=== PATIENT | male | born 1975 | race Caucasian/White ===

== ENCOUNTER 2023-06-09 21:54 | Observation (INO) | payer OTHER, SELFPAY ==
--- NOTE | 2023-06-09 | ECG_ITS ---
Test Reason : HYPERTANTION Blood Pressure : / mmHG Vent. Rate : 118 BPM Atrial Rate : 118 BPM P-R Int : 164 ms QRS Dur : 090 ms QT Int : 328 ms P-R-T Axes : 060 -42 010 degrees QTc Int : 459 ms Sinus tachycardia Left axis deviation Pulmonary disease pattern Minimal voltage criteria for LVH, may be normal variant ( Trey product ) Septal infarct , age undetermined Abnormal ECG No previous ECGs available Referred By: Generic ED Physician Electronically Signed By:ELIDIA WOLFF
--- NOTE | ~2023-06-09 | CT_ITS ---
EXAMINATION: CT HEAD WITHOUT CONTRAST CLINICAL INFORMATION: Confusion, hypertension urgency. COMPARISON: CT of the head done on 06/09/2023. TECHNIQUE: Contiguous axial imaging was performed from the skull base to vertex without intravenous administration of contrast. This CT examination was performed using dose optimization techniques as appropriate, variously including the following: *Automated exposure control *Adjustment of mA and/or kV according to patient size (this includes techniques or standardized protocols for targeted exams where dose is matched to indication/reason for exam; i.e. extremities or head) *Use of iterative reconstruction technique DLP: 700 mGy-cm FINDINGS: There is no evidence of acute intracranial hemorrhage or territorial infarction. No abnormal mass effect or midline shift is seen. Ojeda to white matter differentiation is well preserved. No extra-axial fluid collections are identified. No significant volume loss. No hydrocephalus. There is no abnormal attenuation within the brain parenchyma. The osseous structures and soft tissues are normal. The mastoid air cells and visualized portions of the paranasal sinuses are well aerated. CT/CT head/brain wo IV con IMPRESSION: No acute intracranial pathology. No significant change since 06/09/2023.
--- NOTE | ~2023-06-09 | CT_ITS ---
EXAMINATION: CT HEAD WITHOUT CONTRAST CLINICAL INFORMATION: Altered mental status hypertension COMPARISON: None available. TECHNIQUE: Contiguous axial imaging was performed from the skull base to vertex without intravenous administration of contrast. This CT examination was performed using dose optimization techniques as appropriate, variously including the following: *Automated exposure control *Adjustment of mA and/or kV according to patient size (this includes techniques or standardized protocols for targeted exams where dose is matched to indication/reason for exam; i.e. extremities or head) *Use of iterative reconstruction technique DLP: 684 mGy-cm FINDINGS: There is no evidence of acute intracranial hemorrhage or territorial infarction. No abnormal mass effect or midline shift is seen. Ojeda to white matter differentiation is well preserved. No extra-axial fluid collections are identified. The ventricles are normal in size. There is no abnormal attenuation within the brain parenchyma. The osseous structures and soft tissues are normal. The mastoid air cells and visualized portions of the paranasal sinuses are well aerated. CT/CT head/brain wo IV con IMPRESSION: No acute intracranial pathology.
[2023-06-09 22:02] VITALS: BP 243/151; PULSE 120; RESP 24; TEMP 38.1; O2SAT 94; BMI 29.9
[2023-06-09 22:12] VITALS: BP 243/165
[2023-06-09 22:20] VITALS: BP 250/151; PULSE 108; RESP 16; O2SAT 96
[2023-06-09 22:30] LABS: MANUAL DIFF FLAG NO
[2023-06-09 22:31] LABS: Basophils Absolute Auto 0.1 X10*3/uL (0.0-0.2); Basophils Percent Auto 0.7 % (0-2); Eosinophils Absolute Auto 0.1 X10*3/uL (0.0-0.4); Eosinophils Percent Auto 1.2 % (0-4); Hemoglobin 19.5 g/dl (14.0-18.0); Imm Gran Abs Auto 0.04 X10*3/uL (0.00-0.03); Imm Gran Pct Auto 0.4 % (0.0-0.4); Lymphocytes Absolute Auto 1.3 X10*3/uL (1.2-4.9); Lymphocytes Percent Auto 12.3 % (20-40); Mean Corpuscular Hemoglobin 30.7 pg (27.0-33.0); Mean Corpuscular Volume 87.7 fL (80.0-98.0); Mean Platelet Volume 10.1 fL (9.4-12.4); Monocytes Absolute Auto 0.5 X10*3/uL (0.1-1.2); Neutrophils Absolute Auto 8.2 x10*3/uL (2.0-8.3); Neutrophils Percent Auto 80.4 % (45-73); Platelet Count 254 X10*3/uL (160-400); Red Blood Count 6.35 X10*6/uL (4.60-5.80); Red Cell Distribution Width 12.8 % (11.0-16.0); White Blood Count 10.2 X10*3/uL (4.8-10.8)
--- NOTE | 2023-06-09 22:31 | ED_ITS ---
HPI - General Adult General Chief complaint: General Medical Stated complaint: Withdrawals Time Seen by Provider: 06/09/23 22:31 Source: patient Mode of arrival: ambulatory Limitations: no limitations History of Present Illness HPI narrative: Patient has history of anxiety using MDMA for a while off and on last time he took was 5 days ago took 2 bumps with other people more than usual also take anabolic steroids for last 4 years off and on last dose was 2 days ago been having manic episode with mind racing and psychosis feeling with better thoughts denying any SI/HI no headache patient does have history of hypertension takes hydrochlorothiazide with well-controlled blood pressure today he came because it was not feeling good feel jittery and anxious and mind racing. No prior history of diagnosis psychiatric illness. On arrival blood pressure was 243/151 with pulse rate of 120 temperature of 100.6 degrees Related Data Allergies Allergy/AdvReac Type Severity Reaction Status Date / Time No Known Allergies Allergy Verified 06/09/23 22:10 Review of Systems Review of Systems: Yes all other systems are reviewed and are negative [facility] Social History Social History Alcohol intake: current Alcohol intake frequency: a few times a month Use of substances other than those prescribed or required for medical reasons: Yes Substance Use Type: Hallucinogens and Other Substance Use Type Other:: steroids, testosterone Substance Use Frequency: Daily Substance Use Frequency Other:: mdma on tuesday, testosterone and steroids daily Last Used Substance: Days (ago) Advance Directives: No Advance Directives Information Provided: Yes Physical Exam ED Vital Signs: Vital Signs - 24 hr 06/09/23 22:02 06/09/23 22:12 06/09/23 22:20 Temperature 100.6 F H Pulse Rate 120 H 108 H Respiratory Rate 24 H 16 Blood Pressure 243/151 H 243/165 H 250/151 H Pulse Oximetry 94 96 Oxygen Delivery Method Room Air Room Air 06/09/23 22:53 06/10/23 00:24 06/10/23 00:33 Temperature 98.5 F Pulse Rate 94 88 97 Respiratory Rate 18 19 Blood Pressure 224/144 H 194/115 H 188/118 H Pulse Oximetry 96 94 Oxygen Delivery Method Room Air Room Air 06/10/23 02:00 Temperature Pulse Rate 83 Respiratory Rate 22 H Blood Pressure 157/86 H Pulse Oximetry 94 Oxygen Delivery Method Room Air BMI result Body Mass Index 29.9 Appearance: Alert. Oriented X3. No acute distress. Anxious Eyes: PERRLA, No Nystagmus ENT: Pharynx normal. Oral Mucosa moist Neck: Normal inspection. Neck supple. CVS: Tachycardiac regular tachycardia no murmur rub or gallop. Pulses normal. Respiratory: No respiratory distress. Equal air entry bilateral, no wheezing/rales/rhonchi Abdomen: Soft and nontender. Bowel sounds are present, no mass palpable, no CVA tenderness Skin: Skin warm and dry. Normal skin color. Normal skin turgor. Extremities: No lower extremity edema. No calf tenderness Neuro: Oriented X 3. No motor deficit. No sensory deficit.No cerebellar signs , cranial nerves II-XII intact Medications Administered Generic Name Dose Route Start Last Admin Trade Name Freq PRN Reason Stop Dose Admin Enoxaparin Sodium 40 mg 06/10/23 02:30 06/10/23 03:51 Enoxaparin Sodium 40 Mg/0.4 Ml Syringe SUBCUT 40 mg Q24H BRISEIDA Administration Discontinued Medications Generic Name Dose Route Start Last Admin Trade Name Freq PRN Reason Stop Dose Admin Sodium Chloride 1,000 mls @ 999 mls/hr 06/10/23 02:35 06/10/23 03:48 Ns IV 06/10/23 03:35 999 mls/hr .Q1H1M ONE Administration Labetalol HCl 20 mg 06/09/23 22:31 06/09/23 22:43 Labetalol Hcl 100 Mg/20 Ml Vial IVPUSH 06/09/23 22:32 20 mg ONCE ONE Administration Labetalol HCl 20 mg 06/10/23 00:08 06/10/23 01:57 Labetalol Hcl 100 Mg/20 Ml Vial IVPUSH 06/10/23 00:09 20 mg ONCE ONE Administration Lorazepam 2 mg 06/09/23 23:47 06/09/23 23:52 Lorazepam 2 Mg/Ml Vial IVPUSH 06/09/23 23:48 2 mg ONCE ONE Administration Medical Decision Making Medical Decision Making [facility] Narrative: Patient with History of hypertension with history of MDMA use and chronic anabolic steroid use came here with exited hypertension with increased anxiety and psychotic feeling possible secondary to chronic steroid use urine tox screen was negative, CT head was also negative patient required 2 doses of IV labetalol noted to have elevated creatinine to 1.78 with no history of renal disease will admit patient for further management blood pressure at time of admission was 143/84 Differential Diagnosis Differential Diagnoses: The differential diagnosis associated with the presentation includes Metabolic encephalopathy/psychosis/CVA/substance abuse Admission/Observation Consideration of admission/observation: Escalation of care including admission/observation considered Consult Healthcare Provider Management of the patient was discussed with: Hospitalist Lab Data MDM Lab Attestation statement: I reviewed the patient's lab results. 06/09/23 22:22 06/09/23 22:22 Labs: Lab Results 06/09/23 06/09/23 06/09/23 Range/Units 22:22 22:22 22:22 WBC 10.2 (4.8-10.8) X10*3/uL RBC 6.35 H (4.60-5.80) X10*6/uL Hgb 19.5 H (14.0-18.0) g/dl Hct 55.7 H (42.0-52.0) % MCV 87.7 (80.0-98.0) fL MCH 30.7 (27.0-33.0) pg MCHC 35.0 (31.0-36.0) g/dl RDW 12.8 (11.0-16.0) % Plt Count 254 (160-400) X10*3/uL MPV 10.1 (9.4-12.4) fL Immature Gran % (Auto) 0.4 (0.0-0.4) % Neut % (Auto) 80.4 H (45-73) % Lymph % (Auto) 12.3 L (20-40) % Perkins % (Auto) 5.0 (2-11) % Eos % (Auto) 1.2 (0-4) % Baso % (Auto) 0.7 (0-2) % Lymph # (Auto) 1.3 (1.2-4.9) X10*3/uL Perkins # (Auto) 0.5 (0.1-1.2) X10*3/uL Eos # (Auto) 0.1 (0.0-0.4) X10*3/uL Baso # (Auto) 0.1 (0.0-0.2) X10*3/uL Abs Immat Gran (auto) 0.04 H (0.00-0.03) X10*3/uL Absolute Neuts (auto) 8.2 (2.0-8.3) x10*3/uL Absolute Nucleated RBC 0.000 (0.0-0.012) X10*3/uL Nucleated RBC % (auto) 0.0 (0.0-0.2) /100WBC Sodium 139 (135-145) mmol/L Potassium 3.5 (3.3-5.1) mmol/L Chloride 103 (96-108) mmol/L Carbon Dioxide 26 (22-29) mmol/L Anion Gap 14 (12-20) BUN 17 H (9-16) mg/dL Creatinine 1.78 H (0.5-1.4) mg/dL Estim Creat Clear Calc 55.0 Estimated GFR 41 Random Glucose 86 (60-115) mg/dL Calcium 9.4 (8.4-10.2) mg/dL Total Bilirubin 1.0 (0.0-1.0) mg/dL Direct Bilirubin 0.3 (0.0-0.5) mg/dL AST 81 H (5-37) U/L ALT 129 H (0-40) U/L Alkaline Phosphatase 55 (39-117) U/L Troponin I High Sens 47.0 H (<3.5-35.0) ng/L Total Protein 7.7 (6.5-8.0) g/dL Albumin 4.2 (3.5-5.0) g/dL Lipase 45 (8-78) U/L Urine Opiates Screen (Not Detect) Urine Fentanyl Screen (Not Detect) Ur Barbiturates Screen (Not Detect) Ur Phencyclidine Scrn (Not Detect) Ur Amphetamines Screen (Not Detect) U Benzodiazepines Scrn (Not Detect) Urine Cocaine Screen (Not Detect) U Marijuana (THC) Screen (Not Detect) 06/09/23 Range/Units 23:56 WBC (4.8-10.8) X10*3/uL RBC (4.60-5.80) X10*6/uL Hgb (14.0-18.0) g/dl Hct (42.0-52.0) % MCV (80.0-98.0) fL MCH (27.0-33.0) pg MCHC (31.0-36.0) g/dl RDW (11.0-16.0) % Plt Count (160-400) X10*3/uL MPV (9.4-12.4) fL Immature Gran % (Auto) (0.0-0.4) % Neut % (Auto) (45-73) % Lymph % (Auto) (20-40) % Perkins % (Auto) (2-11) % Eos % (Auto) (0-4) % Baso % (Auto) (0-2) % Lymph # (Auto) (1.2-4.9) X10*3/uL Perkins # (Auto) (0.1-1.2) X10*3/uL Eos # (Auto) (0.0-0.4) X10*3/uL Baso # (Auto) (0.0-0.2) X10*3/uL Abs Immat Gran (auto) (0.00-0.03) X10*3/uL Absolute Neuts (auto) (2.0-8.3) x10*3/uL Absolute Nucleated RBC (0.0-0.012) X10*3/uL Nucleated RBC % (auto) (0.0-0.2) /100WBC Sodium (135-145) mmol/L Potassium (3.3-5.1) mmol/L Chloride (96-108) mmol/L Carbon Dioxide (22-29) mmol/L Anion Gap (12-20) BUN (9-16) mg/dL Creatinine (0.5-1.4) mg/dL Estim Creat Clear Calc Estimated GFR Random Glucose (60-115) mg/dL Calcium (8.4-10.2) mg/dL Total Bilirubin (0.0-1.0) mg/dL Direct Bilirubin (0.0-0.5) mg/dL AST (5-37) U/L ALT (0-40) U/L Alkaline Phosphatase (39-117) U/L Troponin I High Sens (<3.5-35.0) ng/L Total Protein (6.5-8.0) g/dL Albumin (3.5-5.0) g/dL Lipase (8-78) U/L Urine Opiates Screen Not Detected (Not Detect) Urine Fentanyl Screen Not Detected (Not Detect) Ur Barbiturates Screen Not Detected (Not Detect) Ur Phencyclidine Scrn Not Detected (Not Detect) Ur Amphetamines Screen Not Detected (Not Detect) U Benzodiazepines Scrn Not Detected (Not Detect) Urine Cocaine Screen Not Detected (Not Detect) U Marijuana (THC) Screen Not Detected (Not Detect) Independent Interpretation I performed an independent interpretation of an: EKG Interpretation: Since tachycardia heart rate 118 beats per minute LVH left axis deviation no acute ST-T change and no acute ischemia Critical Care Time Critical Care Time Critical Care Time: Yes Total Critical Care Time: 55 Attestation: The patient was critically ill with a high probability of imminent or life threatening deterioration. I spent greater than 60 minutes of discontinuous time evaluating the patient,delivering critical care at the bedside, discussing and evaluating pertinent data with consultants. Critical care time does not include time spent performing separately billable procedures or teaching. Total time spent performing critical care was 55 minutes. Discharge Plan Discharge Clinical Impression: Hypertensive urgency, CELENA (acute kidney injury), Psychosis Patient Disposition: Admitted As Inpatient
[2023-06-09 22:35] LABS: Hematocrit 55.7 % (42.0-52.0)
[2023-06-09] MEDS: Labetalol HCL 100 MG/20 ML VIAL 20 MG IVPUSH (22:43)
[2023-06-09 22:45] LABS: Alanine Aminotransferase 129 U/L (0-40); Albumin Level 4.2 g/dL (3.5-5.0); Alkaline Phosphatase 55 U/L (39-117); Anion Gap 14 (12-20); Aspartate Amino Transferase 81 U/L (5-37); Bilirubin Direct 0.3 mg/dL (0.0-0.5); Blood Urea Nitrogen 17 mg/dL (9-16); Calcium 9.4 mg/dL (8.4-10.2); Carbon Dioxide 26 mmol/L (22-29); Chloride 103 mmol/L (96-108); Estimated Glomerular Filt Rate 41; Glucose Random 86 mg/dL (60-115); Lipase 45 U/L (8-78); Potassium 3.5 mmol/L (3.3-5.1); Sodium 139 mmol/L (135-145); Total Protein 7.7 g/dL (6.5-8.0)
[2023-06-09 22:53] VITALS: BP 224/144; PULSE 94; RESP 18; O2SAT 96
--- OUTSIDE RECORDS SUMMARY | 2023-06-09 23:46 | XMS_ITS | Continuity of Care Document ---
Author Name Unknown Organization [facility] Address [address] [place] [id number]- Care Team Providers Care Director Of Surgery Name Role Phone Andre Rice DO Primary Care Physician Encounter [facility] Date(s): 01/28/23 - 02/27/23 [facility] [address] [place] [id number] Allergies, Adverse Reactions, Alerts No Known Allergies Medications albuterol 90 mcg/inh inhalation aerosol See Instructions, 4 times a day, # 2 each, 3 Refills Start Date: 02/25/09 Stop Date: 03/27/09 Status: Ordered Compression Stockings See Instructions, # 1 pair, Maintenance, rubber band surgical, thigh high length 20-30 mm Hg, 05/25/16 10:33:55, Compound Start Date: 05/25/16 Status: Ordered hydrochlorothiazide-triamterene 25 mg-37.5 mg oral capsule 1 capsule, By Mouth, Daily, 0 Refills, Maintenance, 08/13/22 12:08:00 EDT, Partial fill upon patient request if the prescription is for a schedule II opioid drug. Start Date: 08/13/22 Status: Ordered Testosterone 0 Refills, Maintenance, 08/13/22 12:08:00 EDT, Partial fill upon patient request if the prescription is for a schedule II opioid drug. Start Date: 08/13/22 Status: Ordered Problem List Condition Confirmation Course Effective Dates Status Health St atus Informant Obstructive sleep apnea hypopnea, moderate Confirmed Active Social History Social History Type Response Smoking Status Never smoker entered on: 05/25/16 Sex Patient Care team information Care Team Personnel Name: Andre Rice DO Position: Reference Physician Member Role: PCP Address: Address: [address] [place] [address] [place] [address]- Care Team Related Persons Name: ERIC CHISHOLM Address: home [address] [place] [address] Name: LAMONTE BURTON Address: home [address] [place] [address] Name: EDMAR SWIFT Address: home [address] [place] [address]
--- OUTSIDE RECORDS SUMMARY | 2023-06-09 23:46 | XMS_ITS | Continuity of Care Document ---
Author Name Unknown Organization [facility] Address [address] [place] [address]- Care Team Providers Care Roll Carrier Name Role Phone Andre Rice DO Primary Care Physician [phone] [id number] Date(s): 08/12/22 - 08/19/22 [facility] [address] [place] [address]- Attending Physician: Sosa Price MD Admitting Physician: Sosa Price MD Referring Physician: Andre Rice DO Allergies, Adverse Reactions, Alerts No Known Allergies [...] on: 05/25/16 Sex Patient Care team information Personnel Name: Andre Rice DO Address: Address: [address] [place] [address] Internal Medicine [place], [place] [address]
--- OUTSIDE RECORDS SUMMARY | 2023-06-09 23:46 | XMS_ITS | Continuity of Care Document ---
Author Name Unknown Organization [facility] Address [address] [place] [address]- Care Team Providers Care Front Desk Admin Name Role Phone Andre Rice DO Primary Care Physician [id number] Date(s): 08/12/22 - 09/11/22 [facility] [address] [place] [id number] Attending Physician: Cherri Faye Admitting Physician: AdmCherri sandra Referring Physician: Admtr, Ar8 Allergies, Adverse Reactions, Alerts No Known Allergies [...] Reference Physician Member Role: PCP Address: Address: [address] [place] [address] [place] [address]- Care Team Related Persons Name: ERIC CHISHOLM Address: home [address] [place] [address] Name: LAMONTE BURTON Address: [address] [place] [address] Name: EDMAR SWIFT Address: home [address] [place] [address]
--- OUTSIDE RECORDS SUMMARY | 2023-06-09 23:46 | XMS_ITS | Continuity of Care Document ---
Author Name Unknown Organization [facility] Address [address] [place] [address]- Care Team Providers Care Breaker Table Worker Name Role Phone Andre Rice DO Primary Care Physician [id number] Date(s): 08/12/22 - 09/11/22 [facility] [address] [place] [id number] Allergies, Adverse Reactions, Alerts No Known Allergies [...] Reference Physician Member Role: PCP Address: Address: [address] [place] [address] [place] [address]- Care Team Related Persons Name: ERIC CHISHOLM Address: home [address] [place] [address] Name: LAMONTE BURTON Address: [address] [place] [address] Name: EDMAR SWIFT Address: home [address] [place] [address]
--- OUTSIDE RECORDS SUMMARY | 2023-06-09 23:46 | XMS_ITS | Continuity of Care Document ---
Author Name Unknown Organization [facility] Address [address] [place] [address]- Care Team Providers Care Glycerine Plant Operator Name Role Phone Andre Rice DO Primary Care Physician [phone] [facility] [id number] Date(s): 12/21/22 - 01/20/23 [facility] [address] [place] [place] [address] Attending Physician: Cherri Faye Admitting Physician: AdmCherri [...] Reference Physician Member Role: PCP Address: Address: [address] [place] [address] [place] [address]- Care Team Related Persons Name: ERIC CHISHOLM Address: home [address] [place] [address] Name: LAMONTE BURTON Address: [address] [place] [address] Name: EDMAR SWIFT Address: home [address] [place] [address]
--- OUTSIDE RECORDS SUMMARY | 2023-06-09 23:46 | XMS_ITS | Continuity of Care Document ---
Author Name Unknown Organization [facility] Address [address] [facility] [address], [address] [place] [address]- Care Team Providers Care Clerical Associate Name Role Phone Andre Rice DO Fabio Primary Care Physician [place] [facility] Date(s): 04/18/23 - 05/18/23 [facility] [address], [address], [address] [place] [id number] Allergies, Adverse Reactions, Alerts No [...] Obstructive sleep apnea hypopnea, moderate Confirmed Active Vital Signs Most recent to oldest [Reference Range]: 1 Height 172.72 cm (04/19/23 3:30 PM) Weight 86.18 kg (04/19/23 3:30 PM) Social History Social History Type Response Smoking Status Never smoker entered on: 05/25/16 Sex Patient Care team information Care Team Personnel Name: Andre Rice DO Position: Reference Physician Member Role: PCP Address: Address: [address] [place] [address] [place] [address]- Care Team Related Persons Name: ERIC CHISHOLM Address: home [address] [place] [address] Name: LAMONTE BURTON Address: home [address] [place] [address] Name: EDMAR SWIFT Address: home [address] [place] [address]
[2023-06-09] MEDS: LORazepam 2 MG/ML VIAL IVPUSH (23:52)
[2023-06-10] VITALS (13 sets, daily range): BP systolic 143–202; BP diastolic 84–118; PULSE 63–97; RESP 14–23; TEMP 36.6–36.9; O2SAT 94–96
[2023-06-10 00:17] LABS: Amphetamine Screen Urine Not Detected (Not Detect); Barbiturates, Urine Not Detected (Not Detect); Benzodiazepines Screen Urine Not Detected (Not Detect); Cannabinoid Screen Urine Not Detected (Not Detect); Cocaine Screen Urine Not Detected (Not Detect); Fentanyl, urine Not Detected (Not Detect); Opiate Screen Urine Not Detected (Not Detect); Phencyclidine Screen Urine Not Detected (Not Detect)
[2023-06-10] MEDS: Labetalol HCL 100 MG/20 ML VIAL 20 MG IVPUSH ×2 (01:57→19:08)
--- NOTE | 2023-06-10 02:21 | P.HPHOSP_ITS ---
History of Present Illness Date of Service: 06/10/23 Chief Complaint: Headache This is a 47-year-old male with pertinent history of mood disorder, essential hypertension, substance use disorder who presents to the emergency department with complaints of headache and not feeling well. Patient admits that he has an xiety and uses MDMA. He also uses steroids to get bulky . Patient states he last used MDMA 4 days ago and last 2 steroids 2 days ago. Patient states he has been feeling anxious, jittery and unwell over the last 2-3 days. Also has been having a headache. No chest discomfort or shortness of breath. States his blood pressure is usually well controlled and he is compliant with his medications. Patient states he has also having racing of thoughts, getting delusional and having intermittent auditory hallucinations. No fever, chills, abdominal pain, changes in urinary or bowel habits. No suicidal or homicidal ideations. In the emergency department, blood pressure and creatinine found to be elevated. Review of Systems Constitutional: Constitutional: Reports fatigue and Reports malaise Cardiovascular: Cardiovascular: Reports no additional cardiovascular complaints Respiratory: Respiratory: Reports no additional respiratory complaints Gastrointestinal: Gastrointestinal: Reports no additional gastrointestinal complaints Genitourinary: Genitourinary: Reports no additional male genitourinary complaints Psychiatric: Psychiatric: Reports anxiety, Reports auditory hallucinations, Reports irritability, Reports panic attacks and Reports paranoia Endocrine: Endocrine: Reports fatigue PMFSH Social History Alcohol intake: current Alcohol intake frequency: a few times a month Use of substances other than those prescribed or required for medical reasons: Yes Substance Use Type: Hallucinogens and Other Substance Use Type Other:: steroids, testosterone Substance Use Frequency: Daily Substance Use Frequency Other:: mdma on tuesday, testosterone and steroids daily Last Used Substance: Days (ago) Advance Directives: No Advance Directives Information Provided: Yes Meds Allergies Allergy/AdvReac Type Severity Reaction Status Date / Time No Known Allergies Allergy Verified 06/09/23 22:10 Physical Exam Vital Signs and Narrative: Vital Signs: Last Vital Signs Temp 98.5 F 06/10/23 00:33 Pulse 83 06/10/23 02:00 Resp 22 H 06/10/23 02:00 BP 157/86 H 06/10/23 02:00 Pulse Ox 94 06/10/23 02:00 O2 Del Method Room Air 06/10/23 02:00 BMI result Body Mass Index 29.9 Middle-aged male lying in bed in no distress Neck supple, no JVD Regular rate and rhythm, S1-S2 heard Regular breath sounds bilaterally, no wheezing or crackles appreciated Abdomen soft nontender, no guarding, no rigidity Patient is awake, alert and oriented to self, place, time and person ; no focal motor deficit Psych: Normal mood No pedal edema Results Labs 06/09/23 22:22 06/09/23 22:22 Labs: Laboratory Results - last 24 hr 06/09/23 06/09/23 06/09/23 22:22 22:22 23:56 MCV 87.7 MCH 30.7 MCHC 35.0 RDW 12.8 Plt Count 254 MPV 10.1 Immature Gran % (Auto) 0.4 Neut % (Auto) 80.4 H Lymph % (Auto) 12.3 L [place] % (Auto) 5.0 Eos % (Auto) 1.2 Baso % (Auto) 0.7 Lymph # (Auto) 1.3 [place] # (Auto) 0.5 Eos # (Auto) 0.1 Baso # (Auto) 0.1 Abs Immat Gran (auto) 0.04 H Absolute Neuts (auto) 8.2 Absolute Nucleated RBC 0.000 Nucleated RBC % (auto) 0.0 Anion Gap 14 Estim Creat Clear Calc 55.0 Estimated GFR 41 Random Glucose 86 Calcium 9.4 Total Bilirubin 1.0 Direct Bilirubin 0.3 AST 81 H ALT 129 H Alkaline Phosphatase 55 Total Protein 7.7 Albumin 4.2 Lipase 45 Urine Opiates Screen Not Detected Urine Fentanyl Screen Not Detected Ur Barbiturates Screen Not Detected Ur Phencyclidine Scrn Not Detected Ur Amphetamines Screen Not Detected U Benzodiazepines Scrn Not Detected Urine Cocaine Screen Not Detected U Marijuana (THC) Screen Not Detected Imaging Radiologist's Impressions: Impressions Head CT 06/09/23 23:23 IMPRESSION: No acute intracranial pathology. Assessment and Plan (1) Hypertensive urgency: Status: Acute Plan This is a 47-year-old male with pertinent history of mood disorder, essential hypertension, substance use disorder who presents to the emergency department with complaints of headache and not feeling well. #. Hypertensive urgency/emergency. Blood pressure appropriately lowered in the ER with IV labetalol. Obtaining UA. Monitor blood pressure and optimize prior to discharge. Counseled regarding cessation of MDMA and steroids which are contributing to elevated blood pressure. Resume home p.o. antihypertensives #. Elevated creatinine. Unclear baseline. CELENA versus CKD. Monitor creatinine and urine output. Urine studies pending #. Uncontrolled anxiety. Consulting psych to optimize #. Substance use disorder. Counseled patient regarding cessation of MDMA. Med rec pending DVT prophylaxis: Lovenox Full code Time Spent With Patient Time: Total time managing care of this patient today ____ minutes. Quality Stroke Does the patient have a stroke diagnosis?: No VTE Prior VTE?: No VTE Risk Level:: Medical - moderate - high VTE Device Contraindication: Treatment Not Indicated VTE Drug Contraindication: N/A - Med Ordered
[2023-06-10 03:37] LABS: Appearance Urine Clear; Color Urine Yellow; Glucose Urine UA Negative (Negative); Leukocyte Esterase Urine Negative (Negative); Nitrite Urine Negative (Negative); UMIC TRIGGER UACC YES; Urine Blood Trace (Negative); Urine Ketones Negative (Negative); Urine Protein 300 (3+) mg/dL (Neg-Trace)
[2023-06-10] MEDS: 0.9 % Sodium Chloride 1,000 ML 999 ML IV (03:48)
[2023-06-10] MEDS: Enoxaparin Sodium 40 MG/0.4 ML SYRINGE SUBCUT (03:51)
[2023-06-10 03:54] LABS: Bacteria Urine None Seen (None Seen); Hyaline Casts Urine 0-2 /LPF (0-2); RBC Urine 0-2 /HPF (0-2); Squamous Epithelial Cell Urine 0-2 /HPF (0-2); WBC Urine 0-5 /HPF (0-5)
[2023-06-10 04:07] LABS: Creatinine Urine 51.45 mg/dL; Total Protein Urine Random 179 mg/dL (<12)
[2023-06-10 05:19] LABS: MANUAL DIFF FLAG NO
[2023-06-10 05:34] LABS: Basophils Absolute Auto 0.1 X10*3/uL (0.0-0.2); Basophils Percent Auto 0.9 % (0-2); Eosinophils Absolute Auto 0.3 X10*3/uL (0.0-0.4); Eosinophils Percent Auto 2.5 % (0-4); Hemoglobin 17.3 g/dl (14.0-18.0); Imm Gran Abs Auto 0.03 X10*3/uL (0.00-0.03); Imm Gran Pct Auto 0.3 % (0.0-0.4); Lymphocytes Absolute Auto 1.4 X10*3/uL (1.2-4.9); Lymphocytes Percent Auto 13.9 % (20-40); Mean Corpuscular HGB Conc 34.6 g/dl (31.0-36.0); Mean Corpuscular Hemoglobin 30.7 pg (27.0-33.0); Mean Corpuscular Volume 88.8 fL (80.0-98.0); Mean Platelet Volume 10.9 fL (9.4-12.4); Monocytes Absolute Auto 0.8 X10*3/uL (0.1-1.2); Monocytes Percent Auto 7.4 % (2-11); Neutrophils Absolute Auto 7.7 x10*3/uL (2.0-8.3); Platelet Count 238 X10*3/uL (160-400); Red Blood Count 5.63 X10*6/uL (4.60-5.80); Red Cell Distribution Width 12.9 % (11.0-16.0); White Blood Count 10.2 X10*3/uL (4.8-10.8)
[2023-06-10 06:04] LABS: Anion Gap 11 (12-20); Blood Urea Nitrogen 16 mg/dL (9-16); Calcium 8.7 mg/dL (8.4-10.2); Carbon Dioxide 28 mmol/L (22-29); Chloride 104 mmol/L (96-108); Creatinine Clr Calc Pharmacy 61.6; Estimated Glomerular Filt Rate 47; Glucose Random 96 mg/dL (60-115); Potassium 3.3 mmol/L (3.3-5.1); Sodium 140 mmol/L (135-145)
--- NOTE | 2023-06-10 06:40 | PC.NURSE ---
Delayed entry. Assumed care of patient at 2310. Patient alert and oriented. BP elevated. Medications administered as per MAR with positive effect to bp- lowered to 158/95. Girlfriend at bedside requesting to be called when pt gets a room. PT and girlfriend questioning the need for admission. Call arcos within reach. Plan of care ongoing.
--- NOTE | 2023-06-10 08:28 | PHA.MEDREC ---
Pharmacy Consult ? Medication Reconciliation Pharmacy has completed the medication reconciliation. Completed by Rustam Sequeira
--- NOTE | 2023-06-10 09:37 | MHC.CM.PN ---
[facility]I DELIVERED PT LIVES WITH S/O. INDEP[employer]ENT [facility] [employer] AND [employer]PL[employer]ED [employer]SE [employer]. NO HCP BUT MAY BE WILLING TO COMPLETE ONE WHILE HERE. +COVID [facility] PCP DR. KINSEY PHAM. - THRIVE ASSESSMENT DP: TO RETURN HOME, NO SERVICES ANTICIPATED. S/O WILL TRANSPORT. CM WILL CONTINUE TO FOLLOW FOR ANY CHANGES IN DC PLAN/NEEDS.
[2023-06-10] MEDS: amLODIPine Besylate 5 MG TABLET PO (12:20)
--- NOTE | 2023-06-10 12:27 | PM.EVENT ---
Event Note Date of Service: 06/10/23 Event Note: seen and examined this morning. follow up for uncontrolled blood pressure. reports feeling better this am. had similar presentation the last time he took ecstasy on triamterene/HCTZ at baseline, given elevated renal function and unclear baseline will hold. will start norvasc for now monitor blood pressure closely renal function trending down further management per admission H&P Time Spent With Patient Time: Total time managing care of this patient today ____ minutes.
--- NOTE | 2023-06-10 12:48 | PC.NURSE ---
pt hypertensive, Norvasc given. will recheck. hospitalist aware. pt resting comfortably in no distress, reports no anxiety since assuming care at 0900. awaiting bed assignment
[2023-06-10] MEDS: 0.9 % Sodium Chloride Flush 3 ML SYRINGE IVFLUSH (16:39)
--- NOTE | 2023-06-10 17:27 | PC.NURSE ---
report given to RN 4th floor
[2023-06-10] MEDS: Acetaminophen 325 MG TABLET 650 MG PO (19:15)
--- NOTE | 2023-06-10 21:01 | PC.NURSE ---
BP 202/98 when BP checked after came from ED. RANDALL Mcelroy was notified and Labetolol 20mg IV ordered and administered . On admission assessment pt stated that he had sleep study done recently and was approved for a BIPAP. Stated that he doesn't have the equipment at home yet . Pt stated that he was using CPAP before but was upgraded to the BIPAP
[2023-06-11] VITALS (13 sets, daily range): BP systolic 136–200; BP diastolic 63–117; PULSE 62–97; RESP 14–18; TEMP 36.2–37.3; O2SAT 94–98
[2023-06-11] MEDS: 0.9 % Sodium Chloride Flush 3 ML SYRINGE IVFLUSH ×4 (00:34→19:41)
[2023-06-11] MEDS: Enoxaparin Sodium 40 MG/0.4 ML SYRINGE SUBCUT (03:48)
[2023-06-11 06:56] LABS: Alanine Aminotransferase 107 U/L (0-40); Albumin Level 3.2 g/dL (3.5-5.0); Alkaline Phosphatase 46 U/L (39-117); Anion Gap 10 (12-20); Aspartate Amino Transferase 50 U/L (5-37); Bilirubin Direct 0.1 mg/dL (0.0-0.5); Bilirubin Total 0.5 mg/dL (0.0-1.0); Blood Urea Nitrogen 16 mg/dL (9-16); Calcium 8.7 mg/dL (8.4-10.2); Carbon Dioxide 28 mmol/L (22-29); Chloride 105 mmol/L (96-108); Estimated Glomerular Filt Rate 41; Glucose Random 95 mg/dL (60-115); Potassium 3.2 mmol/L (3.3-5.1); Sodium 140 mmol/L (135-145)
[2023-06-11] MEDS: Potassium Chloride ER 20 MEQ TAB.ER.PRT 40 MEQ PO (08:01)
[2023-06-11] MEDS: amLODIPine Besylate 10 MG TABLET PO (08:01)
[2023-06-11] MEDS: hydrALAZINE HCl 25 MG TABLET PO ×2 (08:02→15:22)
--- NOTE | 2023-06-11 11:17 | HO.PM.IMPN ---
Subjective Subjective Date of Service: 06/11/23 Physical Exam Vital Signs: Vital Signs: Last Vital Signs Temp 98.4 F 06/11/23 07:32 Pulse 72 06/11/23 07:32 Resp 18 06/11/23 07:32 BP 200/100 H 06/11/23 07:32 Pulse Ox 98 06/11/23 07:32 O2 Del Method Room Air 06/11/23 07:32 BMI result Body Mass Index 29.9 Objective Data Active Medications Acetaminophen (Acetaminophen 325 Mg Tablet) 650 mg PO Q6H PRN PRN Reason: Pain, Mild (Pain Scale 1-3) Last Admin: 06/10/23 19:15 Dose: 650 mg Documented By: JAMESON Amlodipine Besylate (Amlodipine Besylate 10 Mg Tablet) 10 mg PO DAILY [facility]; Protocol Last Admin: 06/11/23 08:01 Dose: 10 mg Documented By: ELZA Enoxaparin Sodium (Enoxaparin Sodium 40 Mg/0.4 Ml Syringe) 40 mg SUBCUT Q24H [facility] Last Admin: 06/11/23 03:48 Dose: 40 mg Documented By: CJ Hydralazine HCl (Hydralazine Hcl 25 Mg Tablet) 25 mg PO TID [facility]; Protocol Last Admin: 06/11/23 08:02 Dose: 25 mg Documented By: ELZA Melatonin (Melatonin 3 Mg Tablet) 6 mg PO BEDTIME PRN PRN Reason: Insomnia Ondansetron HCl (Ondansetron Hcl 4 Mg/2 Ml Vial) 4 mg IVPUSH Q8H PRN PRN Reason: Nausea and Vomiting Pharmacy Consult (Consult Rx Perform Med Rec) 1 each MISCELLANE ONCE PRN PRN Reason: Consult order Sodium Chloride (0.9 % Sodium Chloride Flush 3 Ml Syringe) 3 ml IVFLUSH QSHIFT [facility] Last Admin: 06/11/23 08:06 Dose: 3 ml Documented By: ELZA Labs 06/10/23 04:59 06/11/23 05:47 Labs: Laboratory Results - last 24 hr 06/11/23 05:47 Anion Gap 10 L Estim Creat Clear Calc 55.0 Estimated GFR 41 Random Glucose 95 Calcium 8.7 Total Bilirubin 0.5 Direct Bilirubin 0.1 AST 50 H ALT 107 H Alkaline Phosphatase 46 Total Protein 6.0 L Albumin 3.2 L Assessment and Plan (1) CELENA (acute kidney injury): Status: Acute Plan This is a 47-year-old male with pertinent history of mood disorder, essential hypertension, substance use disorder who presents to the emergency department with complaints of headache and not feeling well. Hypertensive urgency Still elevated Amlodipine increased to 10 mg daily. hydralazine TID po added HCTZ on hold due to CELENA Counseled regarding cessation of MDMA and steroids which are contributing to elevated blood pressure.? hypokalemia repleted Elevated creatinine.? Unclear baseline.? CELENA versus CKD.? UA neg, elevated urine protein Uncontrolled anxiety.? Consulting psych to optimize Substance use disorder.? Counseled patient regarding cessation of MDMA. addiction team consulted DVT prophylaxis:? Juan Attending Dr. Rachel Full code OBS Time Spent With Patient Time: Total time managing care of this patient today ____ minutes. Quality Stroke Does the patient have a stroke diagnosis?: No VTE Prior VTE?: No VTE Risk Level:: Medical - moderate - high VTE Device Contraindication: Treatment Not Indicated VTE Drug Contraindication: N/A - Med Ordered
[2023-06-11] MEDS: Labetalol HCL 100 MG/20 ML VIAL 20 MG IVPUSH ×2 (15:16→19:41)
[2023-06-11] MEDS: Nitroglycerin 2 % Oint 1 GM Packet 2 INCH TRANSDERMA (15:35)
[2023-06-11] MEDS: LORazepam 2 MG/ML VIAL 1 MG IVPUSH (15:37)
--- NOTE | 2023-06-11 15:41 | PM.EVENT ---
Event Note Date of Service: 06/11/23 Event Note: S: 1458 notified that patients BP elevated at 216/132 and patient confused and diaphoretic. Reported feeling woozy . alert and oriented x3, although asking questions about what is happening to him. He denied chest pain, sob, nausea, vomiting, headache, visual changes. Multiple SBP readings over 200. Alert and oriented diaphoretic and tachycardic LSCTA soft abd no edema BP down to SBP 170 after initiation of multiple medications , woozy feeling resolved, confusion resolved. AP: hypertensive emergency with hypertensive encephalopathy Labetolol 20mg, 2 inch nitropaste, 1mg IV ativan Brain CT> no acute abnormality scheduled clonidine ativan prn Time Spent With Patient Time: Total time managing care of this patient today ____ minutes.
--- NOTE | 2023-06-11 16:29 | PC.NURSE ---
Patient had BP 216/132 manual at 1445 with symptoms of confusion and was diaphoretic. Siena Olea N.P. notified. patients BP continued to sustain in the 200's. Dr. Rachel and AIRPORT CLERK were bedside at 1458. patient denied SOB and chest pain. RN gave 20mg labatolol, 25mg hydralazine, 1mg of ativan and 1 inch of nitro paste. 2 inches was ordered but only 1 inch was applied MD notified and okay with this. patient received a head CT as precaution and is resting comfortably in bed with a BP of 163/87 at 1640.
[2023-06-11] MEDS: Acetaminophen 325 MG TABLET 650 MG PO (18:33)
[2023-06-11] MEDS: hydrALAZINE HCl 50 MG TABLET PO ×2 (18:34→22:04)
[2023-06-11] MEDS: cloNIDine HCL 0.1 MG TABLET PO ×2 (18:59→22:05)
[2023-06-12 02:31] VITALS: BP 139/78; PULSE 66; RESP 14; TEMP 36.7; O2SAT 97
[2023-06-12] MEDS: Enoxaparin Sodium 40 MG/0.4 ML SYRINGE SUBCUT (03:20)
[2023-06-12 06:21] LABS: Anion Gap 11 (12-20); Blood Urea Nitrogen 20 mg/dL (9-16); Calcium 8.7 mg/dL (8.4-10.2); Carbon Dioxide 27 mmol/L (22-29); Chloride 106 mmol/L (96-108); Creatinine Clr Calc Pharmacy 49.7; Estimated Glomerular Filt Rate 36; Glucose Random 94 mg/dL (60-115); Potassium 3.7 mmol/L (3.3-5.1); Sodium 140 mmol/L (135-145)
[2023-06-12 07:51] VITALS: BP 125/71; PULSE 66; RESP 18; TEMP 36.9; O2SAT 95
[2023-06-12] MEDS: 0.9 % Sodium Chloride 1,000 ML 75 ML IVCONT (09:25)
[2023-06-12] MEDS: hydrALAZINE HCl 50 MG TABLET PO ×2 (09:26→20:24)
[2023-06-12] MEDS: amLODIPine Besylate 10 MG TABLET PO (09:26)
[2023-06-12] MEDS: cloNIDine HCL 0.1 MG TABLET PO ×3 (09:26→20:24)
--- NOTE | 2023-06-12 09:41 | HO.PM.IMPN ---
Subjective Subjective Date of Service: 06/12/23 Review of Systems Follow up hypertension feeling better, no headache Physical Exam Vital Signs: Vital Signs: Last Vital Signs Temp 98.5 F 06/12/23 07:51 Pulse 66 06/12/23 07:51 Resp 18 06/12/23 07:51 BP 125/71 06/12/23 07:51 Pulse Ox 95 06/12/23 07:51 O2 Del Method Room Air 06/12/23 07:51 BMI result Body Mass Index 29.9 Appearing in no acute distress lung sounds are clear to auscultation heart regular rate rhythm, clear S1, S2 positive bowel sounds, abdomen is soft, nontender neuro patient is alert x3, no focal deficits Objective Data Active Medications Acetaminophen (Acetaminophen 325 Mg Tablet) 650 mg PO Q6H PRN PRN Reason: Pain, Mild (Pain Scale 1-3) Last Admin: 06/11/23 18:33 Dose: 650 mg Documented By: ELZA Amlodipine Besylate (Amlodipine Besylate 10 Mg Tablet) 10 mg PO DAILY [facility]; Protocol Last Admin: 06/12/23 09:26 Dose: 10 mg Documented By: MEGAN Clonidine HCl (Clonidine Hcl 0.1 Mg Tablet) 0.1 mg PO TID [facility]; Protocol Last Admin: 06/12/23 09:26 Dose: 0.1 mg Documented By: MEGAN Enoxaparin Sodium (Enoxaparin Sodium 40 Mg/0.4 Ml Syringe) 40 mg SUBCUT Q24H [facility] Last Admin: 06/12/23 03:20 Dose: 40 mg Documented By: TIFFANIE Hydralazine HCl (Hydralazine Hcl 50 Mg Tablet) 50 mg PO QID [facility]; Protocol Last Admin: 06/12/23 09:26 Dose: 50 mg Documented By: MEGAN Sodium Chloride (Ns) 1,000 mls @ 75 mls/hr IVCONT .[id number] [facility] Last Admin: 06/12/23 09:25 Dose: 75 mls/hr Documented By: MEGAN Labetalol HCl (Labetalol Hcl 100 Mg/20 Ml Vial) 20 mg IVPUSH Q10M PRN PRN Reason: SBP>190 Lorazepam (Lorazepam 0.5 Mg Tablet) 0.5 mg PO Q8H PRN PRN Reason: anxiety Melatonin (Melatonin 3 Mg Tablet) 6 mg PO BEDTIME PRN PRN Reason: Insomnia Ondansetron HCl (Ondansetron Hcl 4 Mg/2 Ml Vial) 4 mg IVPUSH Q8H PRN PRN Reason: Nausea and Vomiting Pharmacy Consult (Consult Rx Perform Med Rec) 1 each MISCELLANE ONCE PRN PRN Reason: Consult order Sodium Chloride (0.9 % Sodium Chloride Flush 3 Ml Syringe) 3 ml IVFLUSH QSHIFT [facility] Last Admin: 06/12/23 09:30 Dose: Not Given Documented By: MEGAN Non-Admin Reason: IV Running Labs 06/10/23 04:59 06/12/23 05:42 Labs: Laboratory Results - last 24 hr 06/12/23 05:42 Anion Gap 11 L Estim Creat Clear Calc 49.7 Estimated GFR 36 Random Glucose 94 Calcium 8.7 Assessment and Plan (1) CELENA (acute kidney injury): Status: Acute Plan This is a 47-year-old male with pertinent history of mood disorder, essential hypertension, substance use disorder who presents to the emergency department with complaints of headache and not feeling well. Hypertensive urgency. BP now better controlled Amlodipine increased to 10 mg daily, hydralazine BID, clonidine TID Counseled regarding cessation of MDMA and steroids which are contributing to elevated blood pressure.? hypokalemia repleted CELENA on CKD stage 3 last creat from [facility] 1.6 in 10/2022 UA neg, elevated urine protein elevated due to HTN NS@50 monitor BMP closely Uncontrolled anxiety.? ativan prn Substance use disorder.? Counseled patient regarding cessation of MDMA. addiction team consulted DVT prophylaxis:? Juan Attending Dr. Rachel Full code OBS Time Spent With Patient Time: Total time managing care of this patient today ____ minutes. Quality Stroke Does the patient have a stroke diagnosis?: No VTE Prior VTE?: No VTE Risk Level:: Medical - moderate - high VTE Device Contraindication: Treatment Not Indicated VTE Drug Contraindication: N/A - Med Ordered
[2023-06-12 11:48] VITALS: BP 137/71; PULSE 75; RESP 18; TEMP 37; O2SAT 95
[2023-06-12] MEDS: Acetaminophen 325 MG TABLET 650 MG PO (13:33)
[2023-06-12] MEDS: LORazepam 0.5 MG TABLET PO (13:34)
--- NOTE | 2023-06-12 14:32 | MHC.CM.PN ---
Pt and requested to meet with this CM. Pts had multiple concerns including: when/how can they apply for financial hardship, what is and what is not being covered by insurance, and who can they talk to about the pts anxiety? EMR reviewed and consult has been added for addiction team and psych team. This CM contacted care executive team leader who states they will see the pt tomorrow, this was relayed to the pt and family. The number for [employer] given to pts and she was directed by this CM to call them tomorrow when they open to ask about coverage. CM will attempt to contact financial counselor at [facility] [place].
[2023-06-12 15:22] VITALS: BP 141/74; PULSE 81; RESP 14; TEMP 37.1; O2SAT 96
[2023-06-12 19:40] VITALS: BP 152/92; PULSE 79; RESP 14; TEMP 36.5; O2SAT 96
[2023-06-12 23:11] VITALS: BP 134/58; PULSE 75; RESP 14; TEMP 37; O2SAT 96
[2023-06-13] MEDS: 0.9 % Sodium Chloride Flush 3 ML SYRINGE IVFLUSH ×2 (01:47→09:06)
[2023-06-13] MEDS: 0.9 % Sodium Chloride 1,000 ML 75 ML IVCONT (01:47)
[2023-06-13] MEDS: Enoxaparin Sodium 40 MG/0.4 ML SYRINGE SUBCUT (01:50)
[2023-06-13 03:28] VITALS: BP 141/71; PULSE 69; RESP 18; TEMP 36.7; O2SAT 97
[2023-06-13 07:11] LABS: Anion Gap 9 (12-20); Blood Urea Nitrogen 21 mg/dL (9-16); Calcium 8.2 mg/dL (8.4-10.2); Carbon Dioxide 28 mmol/L (22-29); Chloride 109 mmol/L (96-108); Creatinine Clr Calc Pharmacy 56.6; Estimated Glomerular Filt Rate 42; Glucose Random 91 mg/dL (60-115); Sodium 142 mmol/L (135-145)
[2023-06-13 07:23] VITALS: BP 135/78; PULSE 64; RESP 16; TEMP 36.9; O2SAT 97
[2023-06-13] MEDS: cloNIDine HCL 0.1 MG TABLET PO (09:06)
[2023-06-13] MEDS: hydrALAZINE HCl 50 MG TABLET PO (09:07)
[2023-06-13] MEDS: amLODIPine Besylate 10 MG TABLET PO (09:07)
[2023-06-13 11:47] VITALS: BP 158/79; PULSE 83; RESP 20; TEMP 36.9; O2SAT 95
--- NOTE | 2023-06-13 12:12 | PM.DS ---
DS: Providers Provider Date of Service: 06/13/23 Date of admission: 06/10/23 02:20 Primary care physician: Andre Rice MD Consults: 06/10/23 02:23 Consult to Psychiatry Routine Consulting Provider: Psych Covering Reason for consultation: anxiety 06/11/23 11:20 Addiction Medicine Routine Consulting Provider: Addiction Covering Reason for consultation: MDMA, steroids DS: Diagnosis Discharge Diagnosis (1) CELENA (acute kidney injury): Status: Acute DS: Summary Hospital Course Hospital Course: History and physical as per admitting provider. This is a 47-year-old male with pertinent history of mood disorder, essential hypertension, substance use disorder who presents to the emergency department with complaints of headache and not feeling well.? Patient admits that he has anxiety and uses MDMA.? He also uses steroids to get bulky .? Patient states he last used MDMA 4 days ago and last 2 steroids 2 days ago.? Patient states he has been feeling anxious, jittery and unwell over the last 2-3 days.? Also has been having a headache.? No chest discomfort or shortness of breath.? States his blood pressure is usually well controlled and he is compliant with his medications.? Patient states he has also having racing of thoughts, getting delusional and having intermittent auditory hallucinations.? No fever, chills, abdominal pain, changes in urinary or bowel habits.? No suicidal or homicidal ideations. In the emergency department, blood pressure and creatinine found to be elevated. 47-year-old man treated for hypertensive emergency. Very difficult time initially controlling his blood pressure. Systolic blood pressure readings over 170 and even 200. Patient had 2 episodes where he was symptomatic including a headache and feeling of confusion. Systolic blood pressure over 220 during these instances. Multiple medications given to lower the blood pressure enough for him to have a CT scan to rule out hypertensive bleeding. No evidence of this on imaging studies. Overall patient's blood pressure did come down with hydralazine, clonidine and amlodipine. He seemed to also have some component of anxiety and he was treated with lorazepam with good effect. Systolic blood pressures have ranged 130-150. Patient was urged not to use steroids and MDMA any further. He does have a history of CKD stage 3 with creatinine in October of 1.6. He went up to 1.97 during hospitalization none likely due to hypertensive episodes. He was treated with some IV fluids and creatinine did come down to 1.73, very close to his baseline. He is to check his labs in 2 days to make sure creatinine is continuing to trend down. He should also follow-up with his primary care provider to report his blood pressures as they should be monitored pretty closely. Time Spent with Patient Time attestation: Total time managing care of this patient today ____ minutes. Discharge coordination time: Greater than 30 minutes Quality: Safe Use of Opioids Does Pt have an Active Cancer Diagnosis on the Problem List?: No Quality: Stroke Does the patient have a stroke diagnosis?: No Physical Exam Vital Signs: Vital Signs: Last Vital Signs Temp 98.5 F 06/13/23 11:47 Pulse 83 06/13/23 11:47 Resp 20 06/13/23 11:47 BP 158/79 H 06/13/23 11:47 Pulse Ox 95 06/13/23 11:47 O2 Del Method Room Air 06/13/23 11:47 BMI result Body Mass Index 29.9 Appearing in no acute distress head is normocephalic atraumatic eyes pupils are PERRLA sclera is anicteric mouth throat mucous membranes are intact and moist neck is supple no lymphadenopathy, no JVD noted lung sounds are clear to auscultation heart regular rate rhythm, clear S1, S2 positive bowel sounds, abdomen is soft, nontender neuro patient is alert x3, no focal deficits DS: Data Data Completed and Pending Labs on day of discharge: Laboratory Results - last 24 hr 06/13/23 05:56 Sodium 142 Potassium 4.0 Chloride 109 H Carbon Dioxide 28 Anion Gap 9 L BUN 21 H Creatinine 1.73 H Estim Creat Clear Calc 56.6 Estimated GFR 42 Random Glucose 91 Calcium 8.2 L Discharge Plan Discharge Anticipated Discharge Date/Time: 06/13/23 12:05 Patient Disposition: Home, Self-Care Discharge Diagnosis: Hypertensive urgency/emergency CELENA on CKD stage 3 Hypokalemia Referrals: Andre Rice MD [Primary Care Provider] - 1 Week Discharge Medications: New clonidine HCl 0.1 mg Tablet 0.1 mg PO TID Qty: 90 0RF Protocol: Hold for SBP< HOLD for SBP < : 90 amlodipine 10 mg Tablet 10 mg PO DAILY Qty: 30 0RF Protocol: Hold for SBP< HOLD for SBP < : 90 hydralazine 50 mg Tablet 50 mg PO BID Qty: 60 0RF Protocol: Hold for SBP< HOLD for SBP < : 90 Continued terbinafine HCl 250 mg tablet 250 mg PO DAILY ascorbic acid (vitamin C) [Vitamin C] 500 mg Tablet,Chewable 500 mg PO DAILY vitamin E 268 mg (400 unit) Capsule 268 mg PO DAILY cholecalciferol (vitamin D3) [Vitamin D3] 125 mcg (5,000 unit) Tablet 250 mcg PO DAILY Discontinued triamterene-hydrochlorothiazid 37.5-25 mg capsule 1 cap PO DAILY Discharge Orders: Discharge Order (Routine); Ordered 06/13/23 Ordered By: Siena Olea Diet: Advance to usual diet Activity on Discharge: As tolerated Stand Alone Forms: Patient Portal Discharge page Other Ambulatory Orders: Basic Metabolic Panel (Routine) Timeframe: 2 Days Facility: [facility] - Location: Laboratory Ordered By: Siena Olea Care Plan Goals: Do not use MDMA which can cause a severe elevation of blood pressure Health Concerns: Hypertensive urgency/emergency CELENA on CKD stage 3 Hypokalemia Plan of Treatment: Follow-up with primary care provider in 1 week Check labs in 2 days Take all medications as prescribed: You are on 3 new medications for your blood pressure: Amlodipine, clonidine and hydralazine. Check blood pressures daily and document to share with primary care provider Assessment: See discharge summary
--- NOTE | 2023-06-13 12:19 | MHC.CM.PN ---
Patient has been medically cleared for dc to home today, self care.
--- NOTE | 2023-06-13 14:11 | MHC.RECOVRN ---
This teletypewriter installer met with patient after receiving addiction consult. Pt presented to ED with anxiety, racing thoughts, high BP. Pt was resting in bed comfortably, lights dim. Pt easy to engage. Pt reports recreational use of MDMD, 1-2 x's per year. Pt reports had one time prior to this, many years ago, similar experience of taking MDMA and having increased anxiety/racing thoughts. Pt reports no interest in recreational MDMA after this hospitalization. Pt reports hx of illicit steroid use. Pt reports works at a [employer], about 4 years ago, had prescribed testosterone. Pt reports for past several years, cycling or stacking steroids throughout the year. A typcial cycle being 8-10 weeks of steroid use, with 3-4 months no using steroids. Pt reports using illicit steroids including TRT, MD YULI2, Tren steroid. Pt reports started steroid cycle 04/28/23, pt reports took MDMA Tuesday night. Pt reports present to ED for adverse reaction. This teletypewriter installer and patient reviewed harm reduction, drug check/drug testing, s/s of stimulant overamping. Pt reports is engaged with couples therapist, plans to follow up with therapist for individual sessions. Pt reports goal of abstinence, plans to to follow up with thermospray operator. Pt provided with drug testing information, list of therapists, pt encouraged to call Addiction/Recovery team with any questions/concerns. With patient present, patient request t/w review the above information and plan with pts . Reviewed above information.
== END 2023-06-13 14:30 | disposition home or self-care (01) ==
LOC: HO.ED 23:46 → HO.EDOVER 06-10 02:41 → HO.IMC 06-10 16:38
PROVIDERS: Physician Assistant Medical; Admitting Provider Student in an Organized Health Care Education/Training Program; Emergency Provider Internal Medicine; PCP Internal Medicine; Visit Provider Nurse Practitioner Acute Care
DX: I16.0 Hypertensive urgency (principal); I12.9 Hypertensive chronic kidney disease with stage 1 through stage 4 chronic kidney disease, or unspecified chronic kidney disease; N18.30 Chronic kidney disease, stage 3 unspecified; N17.9 Acute kidney failure, unspecified; E83.51 Hypocalcemia; R41.82 Altered mental status, unspecified; F41.9 Anxiety disorder, unspecified; Z79.52 Long term (current) use of systemic steroids; Z79.899 Other long term (current) drug therapy
CPT/HCPCS: 36415; 70450; 80048; 80076; 80307; 81001; 83690; 84156; 84300; 84484; 85025; 93005; 96361; 96372; 96374; 96375; 96376; 99222; 99285; J1650; J2060

== ENCOUNTER → 2023-06-09 23:45 | Outpatient (BNV) | payer OTHER, SELFPAY | PROVIDERS: Emergency Provider Internal Medicine; PCP Internal Medicine; Visit Provider Student in an Organized Health Care Education/Training Program | DX: N17.9 Acute kidney failure, unspecified (principal) | CPT/HCPCS: 99222; 99232; 99239; 99499 ==

== ENCOUNTER 2023-06-17 09:37 | Outpatient (REF) | payer OTHER, SELFPAY ==
[2023-06-17 15:54] LABS: Alanine Aminotransferase 110 U/L (0-40); Albumin Level 3.9 g/dL (3.5-5.0); Alkaline Phosphatase 48 U/L (39-117); Anion Gap 11 (12-20); Aspartate Amino Transferase 39 U/L (5-37); Bilirubin Total 0.6 mg/dL (0.0-1.0); Blood Urea Nitrogen 21 mg/dL (9-16); Calcium 9.2 mg/dL (8.4-10.2); Carbon Dioxide 24 mmol/L (22-29); Chloride 107 mmol/L (96-108); Estimated Glomerular Filt Rate 51; Glucose Random 97 mg/dL (60-115); Potassium 4.1 mmol/L (3.3-5.1); Sodium 138 mmol/L (135-145); Total Protein 6.7 g/dL (6.5-8.0)
== END 2023-06-17 09:38 | disposition home or self-care (01) ==
LOC: HO.MANLDS 09:37
PROVIDERS: Visit Provider Internal Medicine
DX: N17.9 Acute kidney failure, unspecified (principal)
CPT/HCPCS: 36415; 80053

== ENCOUNTER 2023-06-28 10:11 | Outpatient (REF) | payer OTHER, SELFPAY ==
[2023-06-28 14:06] LABS: Anion Gap 8 (12-20); Blood Urea Nitrogen 16 mg/dL (9-16); Carbon Dioxide 26 mmol/L (22-29); Chloride 109 mmol/L (96-108); Estimated Glomerular Filt Rate 48; Potassium 4.2 mmol/L (3.3-5.1); Sodium 139 mmol/L (135-145)
== END 2023-06-28 10:12 | disposition home or self-care (01) ==
LOC: HO.MANLDS 10:11
PROVIDERS: Visit Provider Internal Medicine
DX: N17.9 Acute kidney failure, unspecified (principal)
CPT/HCPCS: 36415; 80051; 82310; 82565; 84520

== ENCOUNTER 2023-07-06 11:45 | Outpatient (REF) | payer OTHER, SELFPAY ==
[2023-07-06 17:56] LABS: Anion Gap 10 (12-20); Blood Urea Nitrogen 14 mg/dL (9-16); Calcium 9.4 mg/dL (8.4-10.2); Carbon Dioxide 27 mmol/L (22-29); Chloride 107 mmol/L (96-108); Estimated Glomerular Filt Rate 50; Potassium 4.2 mmol/L (3.3-5.1); Sodium 140 mmol/L (135-145)
== END 2023-07-06 11:46 | disposition home or self-care (01) ==
LOC: HO.MANLDS 11:45
PROVIDERS: Visit Provider Internal Medicine
DX: N17.9 Acute kidney failure, unspecified (principal)
CPT/HCPCS: 36415; 80051; 82310; 82565; 84520

== ENCOUNTER 2023-07-12 11:38 | Outpatient (REF) | payer OTHER, SELFPAY ==
[2023-07-12 14:12] LABS: Alanine Aminotransferase 26 U/L (0-40); Albumin Level 3.7 g/dL (3.5-5.0); Alkaline Phosphatase 58 U/L (39-117); Anion Gap 9 (12-20); Aspartate Amino Transferase 19 U/L (5-37); Bilirubin Total 0.4 mg/dL (0.0-1.0); Blood Urea Nitrogen 12 mg/dL (9-16); Calcium 9.1 mg/dL (8.4-10.2); Carbon Dioxide 27 mmol/L (22-29); Chloride 108 mmol/L (96-108); Estimated Glomerular Filt Rate 48; Glucose Random 102 mg/dL (60-115); Potassium 4.2 mmol/L (3.3-5.1); Sodium 140 mmol/L (135-145); Total Protein 6.4 g/dL (6.5-8.0)
== END 2023-07-12 11:39 | disposition home or self-care (01) ==
LOC: HO.MANLDS 11:38
PROVIDERS: Visit Provider Physician Assistant
DX: N17.9 Acute kidney failure, unspecified (principal)
CPT/HCPCS: 36415; 80053

== ENCOUNTER 2023-07-27 11:23 | Outpatient (REF) | payer OTHER, SELFPAY ==
[2023-07-27 14:26] LABS: Alanine Aminotransferase 29 U/L (0-40); Albumin Level 3.9 g/dL (3.5-5.0); Alkaline Phosphatase 62 U/L (39-117); Anion Gap 13 (12-20); Aspartate Amino Transferase 23 U/L (5-37); Bilirubin Total 0.7 mg/dL (0.0-1.0); Blood Urea Nitrogen 14 mg/dL (9-16); Calcium 8.8 mg/dL (8.4-10.2); Carbon Dioxide 27 mmol/L (22-29); Chloride 102 mmol/L (96-108); Estimated Glomerular Filt Rate 53; Glucose Random 98 mg/dL (60-115); Potassium 3.3 mmol/L (3.3-5.1); Sodium 139 mmol/L (135-145); Total Protein 6.8 g/dL (6.5-8.0)
== END 2023-07-27 11:24 | disposition home or self-care (01) ==
LOC: HO.MANLDS 11:23
PROVIDERS: Visit Provider Physician Assistant
DX: N17.0 Acute kidney failure with tubular necrosis (principal)
CPT/HCPCS: 36415; 80053

== ENCOUNTER 2023-08-09 11:47 | Outpatient (REF) | payer OTHER, SELFPAY ==
[2023-08-09 15:06] LABS: Alanine Aminotransferase 43 U/L (0-40); Albumin Level 3.8 g/dL (3.5-5.0); Alkaline Phosphatase 55 U/L (39-117); Anion Gap 15 (12-20); Aspartate Amino Transferase 29 U/L (5-37); Bilirubin Total 0.7 mg/dL (0.0-1.0); Blood Urea Nitrogen 24 mg/dL (9-16); Calcium 9.1 mg/dL (8.4-10.2); Carbon Dioxide 29 mmol/L (22-29); Chloride 99 mmol/L (96-108); Estimated Glomerular Filt Rate 47; Glucose Random 92 mg/dL (60-115); Potassium 2.6 mmol/L (3.3-5.1); Sodium 140 mmol/L (135-145); Total Protein 6.6 g/dL (6.5-8.0)
== END 2023-08-09 11:48 | disposition home or self-care (01) ==
LOC: HO.MANLDS 11:47
PROVIDERS: Visit Provider Internal Medicine
DX: N17.9 Acute kidney failure, unspecified (principal)
CPT/HCPCS: 36415; 80053

== ENCOUNTER 2023-08-16 11:55 | Outpatient (REF) | payer OTHER, SELFPAY ==
[2023-08-16 14:50] LABS: Anion Gap 12 (12-20); Blood Urea Nitrogen 18 mg/dL (9-16); Calcium 9.3 mg/dL (8.4-10.2); Carbon Dioxide 31 mmol/L (22-29); Chloride 101 mmol/L (96-108); Estimated Glomerular Filt Rate 53; Potassium 2.7 mmol/L (3.3-5.1); Sodium 141 mmol/L (135-145)
== END 2023-08-16 11:56 | disposition home or self-care (01) ==
LOC: HO.MANLDS 11:55
PROVIDERS: Visit Provider Physician Assistant
DX: N17.9 Acute kidney failure, unspecified (principal)
CPT/HCPCS: 36415; 80051; 82310; 82565; 84520

== ENCOUNTER 2023-08-23 12:00 | Outpatient (REF) | payer OTHER, SELFPAY ==
[2023-08-23 14:50] LABS: Alanine Aminotransferase 30 U/L (0-40); Albumin Level 3.9 g/dL (3.5-5.0); Alkaline Phosphatase 67 U/L (39-117); Anion Gap 14 (12-20); Aspartate Amino Transferase 27 U/L (5-37); Bilirubin Total 0.6 mg/dL (0.0-1.0); Blood Urea Nitrogen 20 mg/dL (9-16); Calcium 9.5 mg/dL (8.4-10.2); Carbon Dioxide 28 mmol/L (22-29); Chloride 103 mmol/L (96-108); Estimated Glomerular Filt Rate 50; Glucose Random 104 mg/dL (60-115); Potassium 2.8 mmol/L (3.3-5.1); Sodium 142 mmol/L (135-145)
== END 2023-08-23 12:01 | disposition home or self-care (01) ==
LOC: HO.MANLDS 12:00
PROVIDERS: Physician Assistant; Visit Provider Internal Medicine
DX: N17.9 Acute kidney failure, unspecified (principal)
CPT/HCPCS: 36415; 80053

== ENCOUNTER 2023-08-30 11:57 | Outpatient (REF) | payer OTHER, SELFPAY ==
[2023-08-30 14:08] LABS: Alanine Aminotransferase 46 U/L (0-40); Albumin Level 3.8 g/dL (3.5-5.0); Alkaline Phosphatase 63 U/L (39-117); Anion Gap 11 (12-20); Aspartate Amino Transferase 31 U/L (5-37); Bilirubin Total 0.6 mg/dL (0.0-1.0); Blood Urea Nitrogen 15 mg/dL (9-16); Carbon Dioxide 27 mmol/L (22-29); Chloride 106 mmol/L (96-108); Estimated Glomerular Filt Rate 59; Glucose Random 117 mg/dL (60-115); Potassium 3.4 mmol/L (3.3-5.1); Sodium 141 mmol/L (135-145); Total Protein 6.8 g/dL (6.5-8.0)
== END 2023-08-30 11:58 | disposition home or self-care (01) ==
LOC: HO.MANLDS 11:57
PROVIDERS: Visit Provider Physician Assistant
DX: N17.0 Acute kidney failure with tubular necrosis (principal)
CPT/HCPCS: 36415; 80053

== ENCOUNTER 2023-09-06 12:10 | Outpatient (REF) | payer OTHER, SELFPAY ==
[2023-09-06 15:19] LABS: Alanine Aminotransferase 55 U/L (0-40); Alkaline Phosphatase 61 U/L (39-117); Anion Gap 11 (12-20); Aspartate Amino Transferase 33 U/L (5-37); Bilirubin Total 0.6 mg/dL (0.0-1.0); Blood Urea Nitrogen 22 mg/dL (9-16); Calcium 9.2 mg/dL (8.4-10.2); Carbon Dioxide 25 mmol/L (22-29); Chloride 106 mmol/L (96-108); Estimated Glomerular Filt Rate 51; Glucose Random 105 mg/dL (60-115); Potassium 3.8 mmol/L (3.3-5.1); Sodium 138 mmol/L (135-145)
== END 2023-09-06 12:11 | disposition home or self-care (01) ==
LOC: HO.MANLDS 12:10
PROVIDERS: Visit Provider Physician Assistant
DX: N17.0 Acute kidney failure with tubular necrosis (principal)
CPT/HCPCS: 36415; 80053